=== PATIENT | male | born 1980 | race Caucasian/White ===

== ENCOUNTER 2020-08-20 20:36 | Emergency (ER) | payer MEDICAID, MEDICARE ==
--- NOTE | 2020-08-20 20:43 | EDM.PDOCBH ---
<Stan Guevara G - Last Filed: 08/21/20 05:01> ED HPI GENERAL MEDICAL PROBLEM - General Chief Complaint: Behavioral/Psych Stated Complaint: MEDICAL EVAL Time Seen by Provider: 08/20/20 20:40 Source of Information: Reports: Patient, EMS, Police. Denies: Old Records (no old records) History Limitations: Reports: Other (patient not a good historian and no medical records here. ) - History of Present Illness INITIAL COMMENTS - FREE TEXT/NARRATIVE: 40 yo male with a known psych hx and who is not taking any of his meds was transported here via EMS after police requested their assistance. Was cooperative for EMS who noted increased paranoia. Police were concerned about possible suicidality. Had a fight with his girlfriend recently. Is not sure of his medications. Police had 3 separate interactions with him just today. Denies street drug use. 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 [Unable to Verify Home Med List] 08/20/20 [History] ED ROS GENERAL - Review of Systems Review Of Systems: See Below Constitutional: Reports: No Symptoms HEENT: Reports: No Symptoms Respiratory: Reports: No Symptoms Cardiovascular: Reports: No Symptoms Endocrine: Reports: No Symptoms GI/Abdominal: Reports: No Symptoms : Reports: No Symptoms Musculoskeletal: Reports: No Symptoms Skin: Reports: No Symptoms Neurological: Reports: No Symptoms Psychiatric: Reports: Anxiety, Suicidal Ideation (unsure about this), Other (paranoia) ED EXAM, BEHAVIORAL HEALTH - Physical Exam Exam: See Below Exam Limited By: No Limitations General Appearance: Alert, WD/WN, No Apparent Distress, Other (hypervigilant) Eye Exam: Bilateral Eye: EOMI, PERRL, Other (both pupils slightly constricted) Ears: Normal External Exam, Normal Canal, Hearing Grossly Normal, Normal TMs Nose: Normal Inspection, No Blood Throat/Mouth: Normal Inspection, Normal Lips, Normal Oropharynx, Normal Voice, No Airway Compromise Head: Atraumatic, Normocephalic Neck: Normal Inspection Respiratory/Chest: No Respiratory Distress, Lungs Clear, Normal Breath Sounds, No Accessory Muscle Use Cardiovascular: Regular Rate, Rhythm, No Edema GI/Abdominal: Normal Bowel Sounds, Soft, Non-Tender, No Distention Back Exam: Normal Inspection Extremities: Normal Inspection, Normal Range of Motion, Non-Tender, No Pedal Edema Neurological: Alert, Normal Mood/Affect, CN II-XII Intact, Normal Cognition, No Motor/Sensory Deficits, Oriented x 3 Psychiatric: Alert, Normal Cognition, Oriented, Poor Eye Contact, Paranoid Thoughts, Other (poor concentration) Skin Exam: Warm, Dry, Intact, Normal color, No rash Departure - Departure Disposition: DC/Tfer to [facility] H[facility] Clinical Impression: Paranoid schizophrenia, Nonadherence to medication, Marijuana use - Discharge Information Referrals: PCP,None [Primary Care Provider] - Forms: ED Department Discharge <OfficerJulian - Last Filed: 08/21/20 07:35> COURSE, BEHAVIORAL HEALTH COMP - Course Vital Signs: Last Vital Signs Temp 98.0 F 08/20/20 21:26 Pulse 85 08/20/20 21:26 Resp 20 08/20/20 21:26 BP 140/83 08/20/20 21:26 Pulse Ox 99 08/20/20 21:26 Orders, Labs, Meds: Laboratory Tests 08/20/20 08/20/20 08/20/20 Range/Units 21:06 21:06 21:06 WBC 7.0 (4.5-11.0) K/uL RBC 4.68 (4.30-5.90) M/uL Hgb 13.6 (12.0-15.0) g/dL Hct 42.8 (40.0-54.0) % MCV 92 (80-98) fL MCH 29 (27-31) pg MCHC 32 (32-36) % Plt Count 232 (150-400) K/uL Sodium 148 (140-148) mmol/L Potassium 4.5 (3.6-5.2) mmol/L Chloride 105 (100-108) mmol/L Carbon Dioxide 33 H (21-32) mmol/L Anion Gap 14.5 H (5.0-14.0) mmol/L BUN 18 (7-18) mg/dL Creatinine 0.9 (0.8-1.3) mg/dL Est Cr Clr Drug Dosing 112.65 mL/min Estimated GFR (MDRD) > 60 (>60) Glucose 93 (74-106) mg/dL Calcium 9.5 (8.5-10.1) mg/dL TSH, Ultra Sensitive 0.359 (0.358-3.740) uIU/mL Urine Color (YELLOW) Urine Appearance (CLEAR) Urine pH (5.0-8.0) Ur Specific Lena (1.008-1.030) Urine Protein (NEGATIVE) mg/dL Urine Glucose (UA) (NEGATIVE) mg/dL Urine Ketones (NEGATIVE) mg/dL Urine Occult Blood (NEGATIVE) Urine Nitrite (NEGATIVE) Urine Bilirubin (NEGATIVE) Urine Urobilinogen (0.2-1.0) EU/dL Ur Leukocyte Esterase (NEGATIVE) Urine RBC (0-5) Urine WBC (0-5) Ur Epithelial Cells Amorphous Sediment Urine Bacteria Urine Mucus Salicylates 4.3 (2.0-20.0) mg/dL Urine Opiates Screen (NEGATIVE) Ur Oxycodone Screen (NEGATIVE) Urine Methadone Screen (NEGATIVE) Ur Propoxyphene Screen (NEGATIVE) Acetaminophen 0.0 L (10.0-30.0) ug/mL Ur Barbiturates Screen (NEGATIVE) Ur Tricyclics Screen (NEGATIVE) Ur Phencyclidine Scrn (NEGATIVE) Ur Amphetamine Screen (NEGATIVE) U Methamphetamines Scrn (NEGATIVE) Urine MDMA Screen (NEGATIVE) U Benzodiazepines Scrn (NEGATIVE) U Cocaine Metab Screen (NEGATIVE) U Marijuana (THC) Screen (NEGATIVE) Ethyl Alcohol mg/dL SARS CoV-2 RNA Rapid GIANCARLO 08/20/20 08/20/20 08/20/20 Range/Units 21:06 21:22 21:22 WBC (4.5-11.0) K/uL RBC (4.30-5.90) M/uL Hgb (12.0-15.0) g/dL Hct (40.0-54.0) % MCV (80-98) fL MCH (27-31) pg MCHC (32-36) % Plt Count (150-400) K/uL Sodium (140-148) mmol/L Potassium (3.6-5.2) mmol/L Chloride (100-108) mmol/L Carbon Dioxide (21-32) mmol/L Anion Gap (5.0-14.0) mmol/L BUN (7-18) mg/dL Creatinine (0.8-1.3) mg/dL Est Cr Clr Drug Dosing mL/min Estimated GFR (MDRD) (>60) Glucose (74-106) mg/dL Calcium (8.5-10.1) mg/dL TSH, Ultra Sensitive (0.358-3.740) uIU/mL Urine Color Yellow (YELLOW) Urine Appearance Clear (CLEAR) Urine pH 7.0 (5.0-8.0) Ur Specific Lena 1.025 (1.008-1.030) Urine Protein Negative (NEGATIVE) mg/dL Urine Glucose (UA) Negative (NEGATIVE) mg/dL Urine Ketones Negative (NEGATIVE) mg/dL Urine Occult Blood Negative (NEGATIVE) Urine Nitrite Negative (NEGATIVE) Urine Bilirubin Negative (NEGATIVE) Urine Urobilinogen 1.0 (0.2-1.0) EU/dL Ur Leukocyte Esterase Negative (NEGATIVE) Urine RBC 0-5 (0-5) Urine WBC 0-5 (0-5) Ur Epithelial Cells Occasional Amorphous Sediment Occasional Urine Bacteria Occasional Urine Mucus Few Salicylates (2.0-20.0) mg/dL Urine Opiates Screen Negative (NEGATIVE) Ur Oxycodone Screen Negative (NEGATIVE) Urine Methadone Screen Negative (NEGATIVE) Ur Propoxyphene Screen Negative (NEGATIVE) Acetaminophen (10.0-30.0) ug/mL Ur Barbiturates Screen Negative (NEGATIVE) Ur Tricyclics Screen Negative (NEGATIVE) Ur Phencyclidine Scrn Negative (NEGATIVE) Ur Amphetamine Screen Negative (NEGATIVE) U Methamphetamines Scrn Negative (NEGATIVE) Urine MDMA Screen Negative (NEGATIVE) U Benzodiazepines Scrn Negative (NEGATIVE) U Cocaine Metab Screen Negative (NEGATIVE) U Marijuana (THC) Screen Presumptive positive H (NEGATIVE) Ethyl Alcohol < 3 mg/dL SARS CoV-2 RNA Rapid GIANCARLO 08/21/20 Range/Units 05:22 WBC (4.5-11.0) K/uL RBC (4.30-5.90) M/uL Hgb (12.0-15.0) g/dL Hct (40.0-54.0) % MCV (80-98) fL MCH (27-31) pg MCHC (32-36) % Plt Count (150-400) K/uL Sodium (140-148) mmol/L Potassium (3.6-5.2) mmol/L Chloride (100-108) mmol/L Carbon Dioxide (21-32) mmol/L Anion Gap (5.0-14.0) mmol/L BUN (7-18) mg/dL Creatinine (0.8-1.3) mg/dL Est Cr Clr Drug Dosing mL/min Estimated GFR (MDRD) (>60) Glucose (74-106) mg/dL Calcium (8.5-10.1) mg/dL TSH, Ultra Sensitive (0.358-3.740) uIU/mL Urine Color (YELLOW) Urine Appearance (CLEAR) Urine pH (5.0-8.0) Ur Specific Lena (1.008-1.030) Urine Protein (NEGATIVE) mg/dL Urine Glucose (UA) (NEGATIVE) mg/dL Urine Ketones (NEGATIVE) mg/dL Urine Occult Blood (NEGATIVE) Urine Nitrite (NEGATIVE) Urine Bilirubin (NEGATIVE) Urine Urobilinogen (0.2-1.0) EU/dL Ur Leukocyte Esterase (NEGATIVE) Urine RBC (0-5) Urine WBC (0-5) Ur Epithelial Cells Amorphous Sediment Urine Bacteria Urine Mucus Salicylates (2.0-20.0) mg/dL Urine Opiates Screen (NEGATIVE) Ur Oxycodone Screen (NEGATIVE) Urine Methadone Screen (NEGATIVE) Ur Propoxyphene Screen (NEGATIVE) Acetaminophen (10.0-30.0) ug/mL Ur Barbiturates Screen (NEGATIVE) Ur Tricyclics Screen (NEGATIVE) Ur Phencyclidine Scrn (NEGATIVE) Ur Amphetamine Screen (NEGATIVE) U Methamphetamines Scrn (NEGATIVE) Urine MDMA Screen (NEGATIVE) U Benzodiazepines Scrn (NEGATIVE) U Cocaine Metab Screen (NEGATIVE) U Marijuana (THC) Screen (NEGATIVE) Ethyl Alcohol mg/dL SARS CoV-2 RNA Rapid GIANCARLO Negative Medications Discontinued Medications Generic Name Dose Route Start Last Admin Trade Name Freq PRN Reason Stop Dose Admin Lorazepam 1 mg 08/21/20 03:42 08/21/20 03:48 Lorazepam 1 Mg Tab PO 08/21/20 03:43 1 mg ONETIME ONE Administration Lorazepam 1 mg 08/21/20 05:01 Lorazepam 1 Mg Tab PO 08/21/20 05:02 ONETIME ONE Lorazepam 1 mg 08/21/20 05:05 Lorazepam 1 Mg Tab PO 08/21/20 05:06 ONETIME ONE Olanzapine 10 mg 08/20/20 21:59 08/20/20 22:14 Olanzapine 5 Mg Tab PO 08/20/20 22:00 10 mg ONETIME ONE Administration Olanzapine 5 mg 08/20/20 22:43 08/21/20 03:49 Olanzapine 5 Mg Tab PO 08/20/20 22:44 5 mg ONETIME ONE Administration Ondansetron HCl 4 mg 08/20/20 22:42 08/21/20 04:44 Ondansetron 4 Mg Tab.Dis PO 08/20/20 22:43 Not Given ONETIME ONE Potassium Chloride 20 meq 08/21/20 03:13 Potassium Chloride 20 Meq Tab.Er PO 08/21/20 03:14 ONETIME ONE Departure - Departure Time of Disposition: 07:35 Condition: Poor Sepsis Event Note (ED) - Focused Exam Vital Signs: Vital Signs Temp Pulse Resp BP Pulse Ox 08/20/20 21:26 98.0 F 85 20 140/83 99 08/20/20 21:25 98.0 F 85 20 140/83 99 - Assessment/Plan Plan: Assessment Acuity = acute Site and laterality = paranoid schizophrenia off medications with medical compliance Etiology = unknown Manifestations = none Location of injury = Home Lab values = CBC CMP within normal limits urine drug screen is positive for marijuana Plan Change acceptance at [facility] in [facility] [address] will be transported via EMS ground he is currently on a 72-hour This note was dictated using Dime voice recognition software please call with any questions on syntax or grammar.
[2020-08-20] MEDS ORDERED: OLANZapine 5 MG Tab PO ONE ×2 (21:59→22:43)
[2020-08-20] MEDS ORDERED: Ondansetron 4 MG Tab.DIS PO ONE (22:42)
[2020-08-21] MEDS ORDERED: Potassium Chloride 20 MEQ Tab.ER PO ONE (03:13)
[2020-08-21] MEDS ORDERED: LORazepam 1 MG Tab PO ONE ×3 (03:42→05:05)
== END 2020-08-21 08:55 ==
LOC: JP.ED 20:36
DX: F20.0 Paranoid schizophrenia (principal); F12.90 Cannabis use, unspecified, uncomplicated; Z91.19 Patient's noncompliance with other medical treatment and regimen; Z20.822 Contact with and (suspected) exposure to COVID-19
CPT/HCPCS: 36415; 80048; 80143; 80179; 80305; 80307; 81001; 84443; 85027; 99285; A9270; U0002